=== PATIENT | female | born 1935 | race Caucasian/White ===

== ENCOUNTER 2016-11-03 00:44 | Observation (INO) | payer OTHER ==
[~2016-11-03] VITALS: Ht 149.9 cm; Wt 58.0 kg
[~2016-11-03 00:44] MED LIST: ASPIR-LOW81 MG PO; Aspirin E.C. PO; CALCIUM 600 +1 EAC4 PO; CENTRUM COMPLE1 EACH PO; CO Q-10100 MG PO; CYANOCOBALAM1000 MCG PO; Calcium Carbonate,Ca PO; LISINOPRIL5 MG PO; MAGNESIUM PO; MAGNESIUM400 M1 PO; PROTONIX40 MG PO; SIMVASTATIN20 MG PO; TRILIPIX45 MG PO; ZINC PO
[2016-11-03 01:23] LABS: HEMATOCRIT 35.3 % (36.0-46.0); MCH 32.1 PG (29.0-34.0); MCHC 32.9 G/DL (30.0-36.0); MCV 97.8 FL (83-99); MEAN PLAT.VOLUME 11.3 uM^3 (9.5-12.4); PLATELET COUNT 261 K/uL (156-360); RBC DIS.WIDTH-CV 13.3 % (11.8-14.6); RBC DIS.WIDTH-SD 45.5 % (39-53); RED BLOOD COUNT 3.61 M/uL (3.80-5.20); WHITE BLOOD COUNT 5.7 K/uL (4.1-10.2)
[2016-11-03 01:32] LABS: CHLORIDE 101 mEq/L (99-109); POTASSIUM 3.7 mEq/L (3.7-5.4); SODIUM 138 mEq/L (136-147)
[2016-11-03 01:34] LABS: GLUCOSE 116 mg/dL (70-99)
[2016-11-03 01:35] LABS: ANION GAP 11 MEQ/L (2-14)
[2016-11-03 01:38] LABS: GFR ESTIMATE (CALCULATED) > 59 mL/min/
[2016-11-03 01:39] LABS: UREA NITROGEN (BUN) 17 mg/dL (9-23)
[2016-11-03 03:48] LABS: TROP-I INTERPRETATION NEGATIVE; TROPONIN-I < 0.01 ng/mL (0.0-0.30)
[2016-11-03] MEDS ORDERED: MIRALAX17 GM PO (06:13)
[2016-11-03] MEDS ORDERED: CENTRUM SILVER1 EAC4 PO (06:16)
[2016-11-03] MEDS ORDERED: REFRESH OPTIVE15 ML BOTH EYES (06:18)
[2016-11-03] MEDS ORDERED: IBUPROFEN400 MG PO (06:18)
[2016-11-03] MEDS ORDERED: PROPRANOLOL HCL40 MG PO (06:19)
[2016-11-03] MEDS ORDERED: BACLOFEN10 MG PO (06:19)
[2016-11-03 07:12] LABS: ADD MIUA? YES; BILIRUBIN NEGATIVE; BLOOD NEGATIVE; COLOR LT YELLOW ((YELLOW)); GLUCOSE (STRIP) NEGATIVE; KETONES NEGATIVE; LEUKOCYTES SMALL; NITRITE NEGATIVE; PH, URINE 7.5 (5-8); PROTEIN (STRIP) NEGATIVE; SPECIFIC GRAVITY 1.015 (1.000-1.030); UROBILINOGEN 0.2 MG/DL (0.2-1.0)
[2016-11-03 07:23] LABS: HDL CHOLESTEROL 60 MG/DL (Desirable>=50); LDL CHOLESTEROL 51 mg/dL (Desirable<100); NON-HDL CHOLESTEROL 62 mg/dL (Desirable<160); TOTAL CHOLESTEROL 122 mg/dL (Desirable<200); TRIGLYCERIDES 57 MG/DL (Normal: <150)
[2016-11-03 07:31] LABS: BACTERIA 4+; CASTS NONE SEEN /LPF; CRYSTALS NONE SEEN; EPITHELIAL CELLS RARE; MUCUS NONE SEEN; PATHOLOGICAL CAST NONE SEEN; RED BLOOD CELLS 0-5 /HPF (0-5); SMALL ROUND CELL NONE SEEN; UCUL ADDED? YES; YEAST-LIKE CELL NONE SEEN
[2016-11-03 07:43] LABS: Estimated Average Glucose 114 mg/dL (70-123); HEMOGLOBIN A1c (GLYCOHEMOGLOB) 5.6 % HGB (Below 5.7)
[2016-11-03] MEDS ORDERED: LOW DOSE ASPIRI81 M1 PO (07:51)
[2016-11-03 12:25] VITALS: BP 137/62
[2016-11-03 16:01] VITALS: BP 147/65
[2016-11-03] MEDS ORDERED: TYLENOL REGULA325 MG PO (16:16)
== END 2016-11-03 17:47 | disposition home or self-care (01) ==
LOC: EME 00:44 → EDOF 04:44 → 5WEST 12:08
PROVIDERS: Emergency Medicine
DX: H53.8 Other visual disturbances (principal); I10 Essential (primary) hypertension; E78.5 Hyperlipidemia, unspecified; R25.1 Tremor, unspecified; Z85.118 Personal history of other malignant neoplasm of bronchus and lung; Z82.49 Family history of ischemic heart disease and other diseases of the circulatory system
CPT/HCPCS: 70450; 70551; 71020; 80048; 80061; 81003; 83036; 84484; 85027; 87077; 87086; 87186; 93005; 93880; 99281; 99284; G0378

== ENCOUNTER → 2017-03-03 | Outpatient (CLI) | payer OTHER ==
[~2017-03-03] MED LIST changes: +BACLOFEN10 MG PO; +CENTRUM SILVER1 EAC4 PO; +IBUPROFEN400 MG PO; +LOW DOSE ASPIRI81 M1 PO; +MIRALAX17 GM PO; +PROPRANOLOL HCL40 MG PO; +REFRESH OPTIVE15 ML BOTH EYES; +TYLENOL REGULA325 MG PO
[2017-03-03 09:45] LABS: HEMATOCRIT 41.8 % (36.0-46.0); MCHC 33.3 G/DL (30.0-36.0); MCV 99.3 FL (83-99); MEAN PLAT.VOLUME 11.2 uM^3 (9.5-12.4); PLATELET COUNT 231 K/uL (156-360); RBC DIS.WIDTH-CV 13.4 % (11.8-14.6); RBC DIS.WIDTH-SD 49.1 % (39-53); RED BLOOD COUNT 4.21 M/uL (3.80-5.20); WHITE BLOOD COUNT 6.6 K/uL (4.1-10.2)
[2017-03-03 09:55] LABS: INTER. NORMALIZED RATIO 1.1; PROTHROMBIN TIME 10.9 (9.2-11.2); PTT 27.5 (25-32)
== END | disposition home or self-care (01) ==
LOC: OPR 08:38 → EDSTATUS 09:00
PROVIDERS: Internal Medicine
PROC: 0QB03ZX Excision of Lumbar Vertebra, Percutaneous Approach, Diagnostic (ICD-10-PCS; principal; 2017-03-03)
DX: M89.9 Disorder of bone, unspecified (principal); C34.90 Malignant neoplasm of unspecified part of unspecified bronchus or lung; K21.9 Gastro-esophageal reflux disease without esophagitis; D64.9 Anemia, unspecified; I10 Essential (primary) hypertension; E78.5 Hyperlipidemia, unspecified; Z82.49 Family history of ischemic heart disease and other diseases of the circulatory system; Z80.3 Family history of malignant neoplasm of breast
CPT/HCPCS: 77012; 85027; 85610; 85730; 88305; J3010